=== PATIENT | male | born 1950 | race Caucasian/White ===

== ENCOUNTER 2018-03-25 07:49 | Inpatient (IN) ==
[2018-03-25] MEDS ORDERED: Sod Chloride 0.9% Inj 1,000 ML IV.SIG ONE ×2 (08:19→11:01)
--- NOTE | 2018-03-25 08:23 | ED ---
HPI General Chief Complaint: Abdominal Pain Stated Complaint: abd pain/vomiting Time Seen by Provider: 03/25/18 08:09 History of Present Illness HPI narrative: This patient complains of abdominal pain. Started at 1 AM this morning. Duration is 7 hours. Severity is moderate. Location is bilateral upper quadrants. Feels achy and bloated. He vomited twice. No fever or diarrhea or lower quadrant pains. No alleviating factors. No exacerbating factors. Related Data Home Medications Medication Instructions Recorded Confirmed esomeprazole magnesium [Nexium] 40 mg PO DAILY 03/25/18 03/25/18 lisinopril mg PO DAILY 03/25/18 Allergies Allergy/AdvReac Type Severity Reaction Status Date / Time No Known Allergies Allergy Verified 03/25/18 07:58 Review of Systems ROS: all other systems reviewed are negative [facility] Medical History Medical History GERD (gastroesophageal reflux disease) (Acute) HTN (hypertension) (Acute) Surgical History Surgical History No history of previous surgery (Acute) Social History Social History Substance History: No History of Abuse Second Hand Smoke Exposure: No Smoking Status: Never smoker How Often Do You Have a Drink Containing Alcohol: Never [facility] within the Last 8 Weeks: No Recent Out of Country Travel within the Last 8 Weeks: No Immunization History Tetanus Immunization: Unsure Exam Narrative Exam Narrative: GENERAL: Well-nourished, well-developed patient in no apparent distress. SKIN: Focused skin assessment reveals no rash and nodules. Skin is Warm and dry. HEAD: Atraumatic. Normocephalic. EYES: Pupils equal and round. No scleral icterus. No injection or drainage. ENT: No nasal bleeding or discharge. Mucous membranes pink and moist. NECK: Trachea midline. No JVD. CARDIOVASCULAR: Regular rate and rhythm. No murmur appreciated. RESPIRATORY: No accessory muscle use. Clear to auscultation. Breath sounds equal bilaterally. GASTROINTESTINAL: Abdomen soft, non-tender, nondistended. Hepatic and splenic margins not palpable. MUSCULOSKELETAL: No obvious deformities. No clubbing. No cyanosis. No edema. NEUROLOGICAL: Awake and alert. No obvious cranial nerve deficits. Motor grossly within normal limits. Normal speech. PSYCHIATRIC: Appropriate mood and affect; insight and judgment normal. Course Initial Documented Vital Signs Temperature 97.9 F 03/25/18 07:56 Pulse Rate 65 03/25/18 07:56 Respiratory Rate 16 03/25/18 07:56 Blood Pressure 213/108 H 03/25/18 07:56 Pulse Oximetry 98 03/25/18 07:56 Last Documented Vital Signs Temperature 97.9 F 03/25/18 07:56 Pulse Rate 65 03/25/18 07:56 Respiratory Rate 19 03/25/18 08:30 Blood Pressure 175/86 H 03/25/18 09:33 Pulse Oximetry 98 03/25/18 08:30 Medical Decision Making MDM Narrative Medical decision making narrative: 67-year-old male with 7 hours of upper abdominal pain. Etiology is not clear from history or physical. His abdomen is soft and benign and nontender. Going to order some lab studies and a CT of abdomen and pelvis. He has accelerated hypertension. He did not take his medication the last 2 days. Recheck of the blood pressure is better at 175/86 Labs show leukocytosis with normal metabolic studies including LFTs and lipase and bilirubin CT scan shows some changes consistent with acute cholecystitis including gallbladder wall thickening and fluid around the gallbladder and a large gallstone On reevaluation his pain is clearly in the right upper quadrant and his left upper quadrant is soft and benign and nontender. I placed a call to general surgery to discuss. I gave him a dose of IV Zosyn and morphine Case discussed with Dr. Holder. Patient will be admitted for acute cholecystitis and he will plan operative intervention later today. Medical Screen Exam Complete: Yes Emergency Medical Condition: Yes Differential Diagnosis Differential Diagnosis: Biliary colic, cholecystitis, pancreatitis Medical Records Medical records reviewed: Yes I reviewed the patient's medical records. Lab Data Lab results reviewed: Yes I reviewed the patient's lab results. Lab results narrative: CBC shows leukocytosis and metabolic studies are normal Result diagrams: 03/25/18 08:24 03/25/18 08:24 Lab Results 03/25/18 03/25/18 Range/Units 08:24 08:24 CBC w Diff Auto diff final WBC 14.0 H (4.0-11.0) th/mm3 RBC 5.46 (4.50-5.90) mil/mm3 Hgb 14.4 (13.0-17.0) gm/dL Hct 45.5 (39.0-51.0) % MCV 83.2 (80.0-100.0) fL MCH 26.4 L (27.0-34.0) pg MCHC 31.7 L (32.0-36.0) % RDW 13.6 (11.6-17.2) % Plt Count 401 (150-450) th/mm3 MPV 7.7 (7.0-11.0) fL Neut % (Auto) 86.8 H (16.0-70.0) % Lymph % (Auto) 7.4 L (9.0-44.0) % Victoria % (Auto) 4.1 (0.0-8.0) % Eos % (Auto) 1.4 (0.0-4.0) % Baso % (Auto) 0.3 (0.0-2.0) % Neut # (Auto) 12.2 H (1.8-7.7) th/mm3 Lymph # (Auto) 1.0 (1.0-4.8) th/mm3 Victoria # (Auto) 0.6 (0.0-0.9) th/mm3 Eos # (Auto) 0.2 (0.0-0.4) th/mm3 Baso # (Auto) 0.0 (0.0-0.2) th/mm3 WBC Differential . Differential Comment . Sodium 136 (136-145) meq/L Potassium 4.2 (3.5-5.1) meq/L Chloride 100 (98-107) meq/L Carbon Dioxide 29.1 (21.0-32.0) meq/L Anion Gap 7 (5-15) meq/L BUN 14 (7-18) mg/dL Creatinine 1.10 (0.60-1.30) mg/dL Estimated GFR 67 L (>89) mL/min Random Glucose 135 H (74-106) mg/dL Calcium 8.8 (8.5-10.1) mg/dL Total Bilirubin 0.5 (0.2-1.0) mg/dL AST 21 (15-37) U/L ALT 32 (12-78) U/L Alkaline Phosphatase 63 (45-117) U/L Total Protein 7.9 (6.4-8.2) g/dL Albumin 3.8 (3.4-5.0) g/dL Lipase 172 (73-393) U/L Imaging Data Attestation: I personally reviewed and interpreted this imaging study as follows : My impression: CT scan shows gallbladder wall thickening and fluid around the gallbladder and a large gallstone. Radiologist's impression: Abdomen/Pelvis CT 03/25/18 08:19 CONCLUSION: 1. There is a gallstone in the gallbladder measuring 2.6 cm. There is some thickening of the gallbladder wall with a small amount of fluid around the gallbladder. This can be seen with either acute or chronic cholecystitis. Recommend correlation with laboratory values and patient's current physical exam. 2. 2.8 cm hepatic cyst right lobe of the liver. No evidence of biliary tract obstruction. 3. Moderate hiatal hernia the GE junction. 4. Diverticulosis of the descending and sigmoid colon without inflammatory changes. 5. Diffuse enlargement of the prostate gland. Discharge Plan Discharge Disposition Patient Disposition: ED Admit(ED Internal Use Only) Discharge Order Discharge Orders: ED Use Only Admit Order (Routine); Ordered 03/25/18 Ordered By: Fawad Sow Discharge Details Diagnosis: Acute cholecystitis Physicians Team ED Provider: Fawad Sow Primary Care Provider: UNKNOWN, Rxs /Orders / Referrals /Forms Prescriptions: No Action esomeprazole magnesium [Nexium] 40 mg Capsule,Delayed Release(Dr/Ec) 40 mg PO DAILY RF: 0 lisinopril 2.5 mg Tablet PO DAILY RF: 0 Discharge Interventions Interventions: Vital Signs Last Done: 03/25/18 09:33 Status ED Status: Admitted Patient
[2018-03-25 08:30] LABS: Baso % (Auto) 0.3 % (0.0-2.0); Eos # (Auto) 0.2 th/mm3 (0.0-0.4); Eos % (Auto) 1.4 % (0.0-4.0); Hematocrit 45.5 % (39.0-51.0); Hemoglobin 14.4 gm/dL (13.0-17.0); Lymph % (Auto) 7.4 % (9.0-44.0); Mean Corpuscular HGB Conc 31.7 % (32.0-36.0); Mean Corpuscular Hemoglobin 26.4 pg (27.0-34.0); Mean Corpuscular Volume 83.2 fL (80.0-100.0); Mean Platelet Volume 7.7 fL (7.0-11.0); Mono # (Auto) 0.6 th/mm3 (0.0-0.9); Mono % (Auto) 4.1 % (0.0-8.0); Neut # (Auto) 12.2 th/mm3 (1.8-7.7); Neut % (Auto) 86.8 % (16.0-70.0); Platelet Count 401 th/mm3 (150-450); Red Blood Count 5.46 mil/mm3 (4.50-5.90); Red Cell Distribution Width 13.6 % (11.6-17.2)
[2018-03-25 08:37] LABS: Chloride 100 meq/L (98-107); Potassium 4.2 meq/L (3.5-5.1); Sodium 136 meq/L (136-145)
[2018-03-25 08:40] LABS: Calcium 8.8 mg/dL (8.5-10.1)
[2018-03-25 08:41] LABS: Albumin 3.8 g/dL (3.4-5.0); Anion Gap 7 meq/L (5-15); Blood Urea Nitrogen 14 mg/dL (7-18); Carbon Dioxide 29.1 meq/L (21.0-32.0); Glucose,Random 135 mg/dL (74-106); Lipase 172 U/L (73-393)
[2018-03-25 08:44] LABS: Alanine Aminotransferase 32 U/L (12-78); Aspartate Aminotransferase 21 U/L (15-37); Glomerular Filtration Rate 67 mL/min (>89)
[2018-03-25 08:45] LABS: Total Protein 7.9 g/dL (6.4-8.2)
[2018-03-25 08:47] LABS: Alkaline Phosphatase 63 U/L (45-117)
--- NOTE | 2018-03-25 09:25 | CT ---
EXAM DATE: 03/25/2018 9:17 AM EST AGE/SEX: 67 years / Male INDICATIONS: Diffuse abdominal pain. CLINICAL DATA: This is the patient's initial encounter. Patient reports that signs and symptoms have been present for 1 day and indicates a pain score of 7/10. MEDICAL/SURGICAL HISTORY: Gastroesophageal reflux disease. Hypertension. None. ORAL CONTRAST: No oral contrast ingested. RADIATION DOSE: 19.89 CTDI (mGy) COMPARISON: No prior exams available for comparison. TECHNIQUE: Multiple contiguous axial images were obtained through the abdomen and pelvis following b olus infusion of 95 ml Omnipaque 350 (iohexol) nonionic water-soluble contrast as a single exam dos e. No oral contrast ingested. Using automated exposure control and adjustment of the mA and/or kV ac cording to patient size, radiation dose was kept as low as reasonably achievable to obtain optimal di agnostic quality images. DICOM format image data is available electronically for review and comparis on. FINDINGS: Lower Lungs: The visualized lower lungs are clear. Moderate hiatal hernia the GE junction. Liver: The liver has a homogeneous density without space-occupying lesion. There is no dilation of th e biliary tree. 2.8 cm cyst in the upper right lobe of the liver. There is a 2.6 cm gallstone in the gallbladder. There is some thickening of the gallbladder wall with a small amount of fluid around the gallbladder. Spleen: Homogeneous density without enlargement. Pancreas: Unremarkable without mass or calcification. Kidneys: Normal in size and shape. No evidence of mass or hydronephrosis. Adrenal Glands: Unremarkable. Aorta: Atherosclerotic changes. No aneurysmal dilatation. Bowel/Mesentery: The bowel loops are grossly unremarkable. The cecum and sigmoid colon have a normal configuration. The appendix is unremarkable. There is stool throughout the colon. There is scattered diverticula along the sigmoid and descending colon without inflammatory changes. No free fluid. Abdominal Wall: Intact. Retroperitoneum: No evidence of adenopathy in the retrocrural, para-aortic, or deep pelvic regions. Bladder: Contours are smooth. Reproductive Organs: The prostate gland measures 5.7 cm. Inguinal: The inguinal region is unremarkable without evidence of adenopathy. Bony Structures: Mild degenerative changes. CONCLUSION: 1. There is a gallstone in the gallbladder measuring 2.6 cm. There is some thickening of the gallbla dder wall with a small amount of fluid around the gallbladder. This can be seen with either acute or chronic cholecystitis. Recommend correlation with laboratory values and patient's current physical ex am. 2. 2.8 cm hepatic cyst right lobe of the liver. No evidence of biliary tract obstruction. 3. Moderate hiatal hernia the GE junction. 4. Diverticulosis of the descending and sigmoid colon without inflammatory changes. 5. Diffuse enlargement of the prostate gland. Electronically signed by: Jeff Purvis MD Board Certified Radiologist 03/25/2018 9:24 AM EST
[2018-03-25] MEDS ORDERED: Morphine Inj 4 MG/ML Vial IV.PUSH ONE (11:01)
[2018-03-25] MEDS ORDERED: Piperacil/Tazo 3.375 GM Premix 3.375 GM/50 ML PIGGYBACK IV.SIG ONE (11:02)
[2018-03-25] MEDS ORDERED: Bupivacaine/Epinephrine Inj 0.25% 50 ML Vial ONE (12:12)
--- NOTE | 2018-03-25 12:30 | P.HPGS ---
History of Present Illness Service: General Surgery Primary Care Physician: UNKNOWN Chief Complaint: Abdominal pain History of Present Illness: 67 yo M who was awakened from sleep after 1 am last night due to severe epigastric and bilateral upper abdominal pain. He has never had this pain before. He immediately got up and proceeded to the [place] ED. No pain radiation. Multiple episodes of emesis. Noted to have leukocytosis and apparent acute calculous cholecystitis on CT a/p. No previous abdominal surgeries. - Diagnosis (1) Acute calculous cholecystitis Inpatient Certification: I certify that the inpatient services were ordered in accordance with Medicare regulations governing the order. This includes certification that hospital inpatient services are reasonable and necessary and in the case of services not specified as inpatient-only under 42 CFR 419.22(n), that they are appropriately provided as inpatient services in accordance to with the 2-midnight benchmark under 43 CFR 412.3(e) Review of Systems All other systems reviewed negative except as stated in HPI PMFSH - History History Provided By: Patient, Family Member - Medical History Medical History: Medical History (Last Reviewed 03/25/18 @ 08:22 by Fawad Sow MD) GERD (gastroesophageal reflux disease) HTN (hypertension) - Surgical History Surgical History: Surgical History (Last Reviewed 03/25/18 @ 08:22 by Fawad Sow MD) No history of previous surgery - Tobacco History Second Hand Smoke Exposure: No Smoking Status: Never smoker - Alcohol History How Often Do You Have a Drink Containing Alcohol: Never - Substance Use History Substance History: No History of Abuse - Travel History Recent Travel in the [place] Within the Last 8 Weeks: No Recent Travel Out of the Country Within the Last 8 Weeks: No - Immunization History Tetanus Immunization: Unsure Medications and Allergies Active Medications: Active Medications Sodium Chloride (Ns Flush) 2 ml IV.FLUSH PRN PRN PRN Reason: FLUSH AFTER USING IV ACCESS Last Admin: 03/25/18 08:35 Dose: 2 ml Allergies Allergy/AdvReac Type Severity Reaction Status Date / Time No Known Allergies Allergy Verified 03/25/18 07:58 Home Medications Medication Instructions Recorded Confirmed Type esomeprazole magnesium [Nexium] 40 mg PO DAILY 03/25/18 03/25/18 History lisinopril mg PO DAILY 03/25/18 History Exam Vital signs: Vital Signs 03/25/18 07:56 03/25/18 08:30 03/25/18 09:33 Temperature 97.9 F Pulse Rate 65 Respiratory Rate 16 19 Blood Pressure 213/108 H 167/90 H 175/86 H Pulse Oximetry 98 98 03/25/18 11:39 03/25/18 12:16 Temperature 98.3 F Pulse Rate 97 H 80 Respiratory Rate 20 18 Blood Pressure 158/93 H 168/109 H Pulse Oximetry 98 96 Intake & Output 03/24/18 03/25/18 03/25/18 18:59 06:59 18:59 Intake Total 1000 / 1000 Balance 1000 / 1000 Weight 106.8 kg Intake: IV 1000 / 1000 NS Inj 1,000 ML @ Wide Open IV. 1000 / 1000 SIG BOLUS ONE Rx#:[id number] - Constitutional no acute distress, cooperative - Routine HEENT Exam Head: Present: normocephalic, atraumatic Eye: Present: EOMI ENT: Present: mucous membranes moist - Routine Neck Exam Present: supple, full ROM - Routine Respiratory Exam Present: CTA bilaterally. Absent: accessory muscle use - Routine Cardiovascular Exam Present: RRR - Routine Abdominal Exam Present: soft, tenderness (RUQ tender with localized guarding) - Routine Extremities Exam Absent: cyanosis, edema - Routine Skin Exam Present: intact. Absent: cyanosis - Routine Neurological Exam Present: alert, oriented X3 Results - Labs 03/25/18 08:24 03/25/18 08:24 Laboratory Results - last 24 hr 03/25/18 03/25/18 08:24 08:24 CBC w Diff Auto diff final WBC 14.0 H RBC 5.46 Hgb 14.4 Hct 45.5 MCV 83.2 MCH 26.4 L MCHC 31.7 L RDW 13.6 Plt Count 401 MPV 7.7 Neut % (Auto) 86.8 H Lymph % (Auto) 7.4 L Mccreary % (Auto) 4.1 Eos % (Auto) 1.4 Baso % (Auto) 0.3 Neut # (Auto) 12.2 H Lymph # (Auto) 1.0 Mccreary # (Auto) 0.6 Eos # (Auto) 0.2 Baso # (Auto) 0.0 WBC Differential . Differential Comment . Sodium 136 Potassium 4.2 Chloride 100 Carbon Dioxide 29.1 Anion Gap 7 BUN 14 Creatinine 1.10 Estimated GFR 67 L Random Glucose 135 H Calcium 8.8 Total Bilirubin 0.5 AST 21 ALT 32 Alkaline Phosphatase 63 Total Protein 7.9 Albumin 3.8 Lipase 172 - Imaging Imaging: ITS Impressions Abdomen/Pelvis CT 03/25/18 08:19 CONCLUSION: 1. There is a gallstone in the gallbladder measuring 2.6 cm. There is some thickening of the gallbladder wall with a small amount of fluid around the gallbladder. This can be seen with either acute or chronic cholecystitis. Recommend correlation with laboratory values and patient's current physical exam. 2. 2.8 cm hepatic cyst right lobe of the liver. No evidence of biliary tract obstruction. 3. Moderate hiatal hernia the GE junction. 4. Diverticulosis of the descending and sigmoid colon without inflammatory changes. 5. Diffuse enlargement of the prostate gland. CT scan - abdomen: report reviewed, image reviewed CT scan - pelvis: report reviewed, image reviewed Caprini VTE Risk Assessment Caprini VTE Risk Assessment: No/Low Risk (score <= 1) Caprini Risk Assessment Model: Point Value = 1 Point Value = 2 Point Value = 3 Point Value = 5 Age 41-60 Minor surgery BMI > 25 kg/m2 Swollen legs Varicose veins or History of unexplained or recurrent spontaneous Oral contraceptives or hormone replacement Sepsis (< 1 month) Serious lung disease, including pneumonia (< 1 month) Abnormal pulmonary function Acute myocardial infarction Congestive heart failure (< 1 month) History of inflammatory bowel disease Medical patient at bed rest Age 61-74 Arthroscopic surgery Major open surgery (> 45 min) Laparoscopic surgery (> 45 min) Malignancy Confined to bed (> 72 hours) Immobilizing plaster cast Central venous access Age >= 75 History of VTE Family history of VTE Factor V Leiden Prothrombin [id number] Lupus anticoagulant Anticardiolipin antibodies Elevated serum homocysteine Heparin-induced thrombocytopenia Other congenital or acquired thrombophilia Stroke (< 1 month) Elective arthroplasty Hip, pelvis, or leg fracture Acute spinal cord injury (< 1 month) Prophylaxis Regimen: Total Risk Factor Score Risk Level Prophylaxis Regimen 0-1 Low Early ambulation 2 Moderate Order ONE of the following: *Sequential Compression Device (SCD) *Heparin 5000 units SQ BID 3-4 Higher Order ONE of the following medications: *Heparin 5000 units SQ TID *Enoxaparin/Lovenox 40 mg SQ daily (WT < 150 kg, CrCl > 30 mL/min) *Enoxaparin/Lovenox 30 mg SQ daily (WT < 150 kg, CrCl > 10-29 mL/min) *Enoxaparin/Lovenox 30 mg SQ BID (WT < 150 kg, CrCl > 30 mL/min) AND/OR *Sequential Compression Device (SCD) 5 or more Highest Order ONE of the following medications: *Heparin 5000 units SQ TID (Preferred with Epidurals) *Enoxaparin/Lovenox 40 mg SQ daily (WT < 150 kg, CrCl > 30 mL/min) *Enoxaparin/Lovenox 30 mg SQ daily (WT < 150 kg, CrCl > 10-29 mL/min) *Enoxaparin/Lovenox 30 mg SQ BID (WT < 150 kg, CrCl > 30 mL/min) AND *Sequential Compression Device (SCD) Assessment and Plan - Assessment (1) Acute calculous cholecystitis Code(s): K80.00 - Calculus of gallbladder with acute cholecystitis without obstruction Status: Acute - Plan Mr. Khan has an evaluation consistent with acute calculous cholecystitis. I recommend to proceed to the operating room for laparoscopic possible open cholecystectomy. Case and risks discussed in detail with the patient and his and he desires to proceed.
[2018-03-25] MEDS ORDERED: fentaNYL Citrate Inj 100 MCG/2 ML Ampul ONE (12:31)
[2018-03-25] MEDS ORDERED: Lidocaine PF 1% Inj 5 ML Syringe OTHER ONE (12:49)
[2018-03-25] MEDS ORDERED: Neostigmine Inj 5 MG/5 ML Syringe IV.PUSH ONE (12:49)
[2018-03-25] MEDS ORDERED: Chlorhexidine Gluconate 2% 1 Pack (2 Cloths) TOPICAL ONE (12:55)
[2018-03-25] MEDS ORDERED: Metoprolol Tartrate 25 MG Tablet PO ONE (12:55)
[2018-03-25] MEDS ORDERED: Sodium Chlor 0.9% Inj 500 ML IV.SIG SCH (13:00)
[2018-03-25] MEDS ORDERED: HYDROmorphone PF Inj 1 MG/ML Ampul IV.PUSH PRN (13:55)
[2018-03-25] MEDS ORDERED: Post-op Orders (for Pharmacy) OTHER ONE (13:55)
[2018-03-25] MEDS ORDERED: Naloxone Inj 0.4 MG/ML Vial IV.PUSH PRN (13:55)
--- NOTE | 2018-03-25 14:00 | P.OP ---
- Preoperative Diagnosis (1) Acute calculous cholecystitis - Postoperative Diagnosis (1) Acute calculous cholecystitis Date of procedure: 03/25/18 Procedure: Laparoscopic cholecystectomy Anesthesia: ARACELIS Surgeon: Ricky Holder MD Tubing Assembler: Lane Estimated blood loss (mL): 20 Pathology: other (gallbladder) Operation and Findings: Operative findings: The gallbladder was inflamed and thickened with a large gallstone present. Procedure in detail: The patient was taken to the operating room and placed in the supine position. General endotracheal anesthesia was induced. The abdomen was prepped and draped in usual sterile fashion and a surgical timeout was performed to verify correct patient procedure and site. Appropriate perioperative antibiotics were administered. Local anesthetic was injected in the skin and subcutaneous tissue superior to the umbilicus and a 5 mm incision performed. The abdomen was entered using the Optiview 5 mm trocar with direct laparoscopic visualization. The abdomen was then insufflated to 15 mmHg with CO2 gas which the patient tolerated well. Next a 12 mm port was placed in the epigastrium and two 5 mm ports in the right upper quadrant and right lateral abdomen. The patient was placed in reverse Trendelenburg position and turned slightly to the left. Attention was turned to the right upper quadrant and the dome of the gallbladder was grasped and retracted cephalad. The infundibulum was retracted laterally to expose Calot's triangle. Blunt dissection and judicious use of electrocautery was used to expose the cystic duct and the cystic artery directly entering the gallbladder. Two clips were placed proximally on each of these structures and one distally and they were transected. The gallbladder was then removed from the liver bed using electrocautery. Hemostasis was achieved. The gallbladder was then removed from the abdomen using an Endo Catch bag. The clips were in place on the cystic duct and cystic artery stumps with no bleeding or bile leakage. At this point, the abdomen was allowed to desufflate and trochars were removed. The fascia at the 12 mm port site was closed with 0 Vicryl suture. Skin was closed with subcuticular 4-0 Monocryl as well as Dermabond. The patient tolerated the procedure well and was extubated and taken to PACU in stable condition. All sponge and instrument counts were correct.
[2018-03-25] MEDS: Ketorolac Inj 30 MG/ML (IVP) Vial IV.PUSH SCH ×2 (15:34→21:47)
[2018-03-25] MEDS: Sod Chloride 0.9% Inj 1,000 ML IV.CONT SCH (15:36)
[2018-03-26] MEDS: Ketorolac Inj 30 MG/ML (IVP) Vial IV.PUSH SCH ×2 (02:07→08:59)
[2018-03-26] MEDS: Sod Chloride 0.9% Inj 1,000 ML IV.CONT SCH ×2 (03:44→09:03)
--- NOTE | 2018-03-26 09:14 | P.PNGS ---
Subjective Interval history: Tolerating diet. Pain controlled. Physical Exam Vital signs: Vital Signs 03/25/18 09:33 03/25/18 11:39 03/25/18 12:16 Temperature 98.3 F Pulse Rate 97 H 80 Respiratory Rate 20 18 Blood Pressure 175/86 H 158/93 H 168/109 H Pulse Oximetry 98 96 03/25/18 14:01 03/25/18 14:03 03/25/18 14:20 Temperature 97.9 F Pulse Rate 105 H 97 H 95 H Respiratory Rate 16 16 16 Blood Pressure 180/102 H 179/99 H 160/100 H Pulse Oximetry 96 97 94 L 03/25/18 15:40 03/25/18 15:53 03/25/18 15:54 Temperature Pulse Rate Respiratory Rate 18 18 17 Blood Pressure Pulse Oximetry 03/25/18 16:00 03/25/18 20:00 03/25/18 21:30 Temperature 99.5 F 98.1 F Pulse Rate 82 84 Respiratory Rate 18 18 Blood Pressure 156/78 H 133/64 Pulse Oximetry 95 96 96 03/26/18 00:00 03/26/18 07:46 Temperature 97.6 F Pulse Rate 82 Respiratory Rate 18 Blood Pressure 140/66 Pulse Oximetry 96 97 Intake & Output 03/25/18 03/26/18 03/26/18 18:59 06:59 18:59 Intake Total 4090 / 4090 1200 / 1200 Output Total 370 / 370 200 / 200 Balance 3720 / 3720 1000 / 1000 Weight 106.8 kg 107.2 kg Intake: IV 3850 / 3850 1200 / 1200 NS Inj 1,000 ML @ 100 mls/hr IV 1000 / 1000 .CONT .Q10H BRYAN Rx#:[id number] Ofirmev Inj 1,000 mg In 100 ml 100 / 100 200 / 200 @ 400 mls/hr IV.SIG Q6H BRYAN Rx# :[id number] LR 1000 mL Inj 1,000 ML @ 30 1700 / 1700 mls/hr IV.SIG .Q24H BRYAN Rx#: [id number] Zosyn 3.375 GM Premix 3.375 gm 50 / 50 In 50 ml @ 100 mls/hr IV.SIG ONCE ONE Rx#:[id number] NS Inj 1,000 ML @ Wide Open IV. 1999 SIG BOLUS ONE Rx#:[id number] Oral 240 / 240 0 / 0 Output: Urine 350 / 350 200 / 200 Estimated Blood Loss Other: # Voids 1 Narrative: NAD Abd: etienne lucero c/d/i Results - Labs 03/25/18 08:24 03/25/18 08:24 - Imaging Imaging: ITS Impressions Abdomen/Pelvis CT 03/25/18 08:19 CONCLUSION: 1. There is a gallstone in the gallbladder measuring 2.6 cm. There is some thickening of the gallbladder wall with a small amount of fluid around the gallbladder. This can be seen with either acute or chronic cholecystitis. Recommend correlation with laboratory values and patient's current physical exam. 2. 2.8 cm hepatic cyst right lobe of the liver. No evidence of biliary tract obstruction. 3. Moderate hiatal hernia the GE junction. 4. Diverticulosis of the descending and sigmoid colon without inflammatory changes. 5. Diffuse enlargement of the prostate gland. Assessment and Plan - Plan POD 1 s/p lap jared. Doing well. D/c home. Regular diet. Activity- ok to shower. Rx for toradol. F/u with me in two weeks. Stable condiiton.
--- NOTE | 2018-03-26 11:36 | ECG ---
Date Performed: 03/25/2018 Time Performed: 12:22:25 PTAGE: 67 years EKG: Sinus rhythm NORMAL ECG NO PREVIOUS TRACING DOCTOR: Juan Daniel Badillo Interpretating Date/Time 03/26/2018 11:31:08
== END 2018-03-26 12:20 | disposition home or self-care (01) ==
LOC: PHED 07:49 → PHEDA 11:13 → PH3 11:52
PROVIDERS: ADMIT Surgery; ATTEND Surgery